=== PATIENT | female | born 1995 | race Hispanic/Latino ===

== ENCOUNTER 2022-11-17 11:52 | Emergency (ER) | payer SELFPAY ==
[2022-11-17] MEDS ORDERED: Lidocaine 1% w/Epinephrine 1:100K 20 ML VIAL ONE (13:15)
[2022-11-17] MEDS ORDERED: Boostrix 0.5 ML (Tdap) VIAL (>/=7 yrs of age) ONE (13:15)
[2022-11-17] MEDS ORDERED: Morphine 4 MG/ML VIAL ONE (14:01)
[2022-11-17] MEDS ORDERED: Lidocaine 2% PF 5 ML VIAL ONE (14:52)
== END 2022-11-17 17:02 | disposition home or self-care (01) ==
LOC: ERS 11:52
DX: S66.921A Laceration of unspecified muscle, fascia and tendon at wrist and hand level, right hand, initial encounter (principal); F17.210 Nicotine dependence, cigarettes, uncomplicated; W25.XXXA Contact with sharp glass, initial encounter; Z23 Encounter for immunization
CPT/HCPCS: 12042; 90471; 90715; 96374; J2001; J2270